=== PATIENT | female | born 1965 | race Caucasian/White ===

== ENCOUNTER 2019-04-02 20:06 | Emergency (ER) | payer SELFPAY ==
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
--- NOTE | 2019-04-05 10:01 | RADIOLOGY REPORT ---
EXAM: LEFT KNEE, THREE VIEWS HISTORY: LEFT KNEE TWISTING INJURY, LATERAL KNEE PAIN. TECHNIQUE: Three views of the left knee were obtained. Comparison: None. Encounter: Initial. FINDINGS: There is no bone or joint abnormality. Minimal spurring of the dorsal patella. A suprapatellar joint effusion is suspected. IMPRESSION: LEFT KNEE JOINT EFFUSION. NO EVIDENCE FOR FRACTURE OR DISLOCATION. EARLY OSTEOARTHROSIS AT THE PATELLOFEMORAL COMPARTMENT. JOB NUMBER: [id number] MTDD
== END 2019-04-02 20:59 | disposition home or self-care (01) ==
LOC: ER 20:06
DX: S89.92XA Unspecified injury of left lower leg, initial encounter (principal); X50.0XXA Overexertion from strenuous movement or load, initial encounter; Y92.89 Other specified places as the place of occurrence of the external cause
CPT/HCPCS: 99283

== ENCOUNTER 2019-08-17 10:25 | Emergency (ER) | payer SELFPAY ==
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
[2019-08-17] MEDS ORDERED: NAPROXEN 250 MG TABLET PO ONE (12:41)
== END 2019-08-17 12:57 | disposition home or self-care (01) ==
LOC: ER 10:25
DX: S29.012A Strain of muscle and tendon of back wall of thorax, initial encounter (principal); S16.1XXA Strain of muscle, fascia and tendon at neck level, initial encounter; J44.9 Chronic obstructive pulmonary disease, unspecified; F17.210 Nicotine dependence, cigarettes, uncomplicated; V43.52XA Car driver injured in collision with other type car in traffic accident, initial encounter; Y92.411 Interstate highway as the place of occurrence of the external cause
CPT/HCPCS: 72050; 72072; 99284